=== PATIENT | male | born 1940 | race Caucasian/White ===

== ENCOUNTER → 2017-02-25 | Outpatient (CLI) | payer OTHER ==
[~2017-02-25] MED LIST: ALBU8.5H3 INH; ATOR20TA9 PO; DABI150C PO; FURO40TA6 PO; LISI-170 PO; METF500T4 PO; METO-95 PO; POTA10TA31 PO; TERA5CAP3 PO; TIOT18CA INH
[2017-02-25 13:31] LABS: BLOOD UREA NITROGEN 19 mg/dL (7-18)
[2017-02-25 13:34] LABS: ASPARTATE AMINO TRANSFERASE 12 U/L (15-37)
== END | disposition home or self-care (01) ==
LOC: STAR 12:16
PROVIDERS: ATTEND Internal Medicine Gastroenterology
DX: Z01.818 Encounter for other preprocedural examination (principal); B96.89 Other specified bacterial agents as the cause of diseases classified elsewhere
CPT/HCPCS: 36415; 80053; 93005

== ENCOUNTER 2017-03-01 11:02 | Day surgery (SDC) | payer OTHER ==
[~2017-03-01] VITALS: Ht 177.8 cm; Wt 88.0 kg
[2017-03-01 09:53] LABS: FECAL DELIVERY METHOD COLONOSCOPY
[~2017-03-01 11:02] MED LIST changes: +FENTANYL PF 250 MCG/5ML ONE; +MIDAZOLAM 1 MG/ML, 2ML ONE
[2017-03-01 11:36] VITALS: BP 142/70
[2017-03-01] MEDS ORDERED: LACTATED RINGERS 1,000 ML IV SCH (11:40)
[2017-03-01] MEDS ORDERED: LIDOCAINE 1%, 2ML SQ PRN (12:00)
[2017-03-01] MEDS ORDERED: FENTANYL PF 250 MCG/5ML ONE (12:48)
[2017-03-01] MEDS ORDERED: MIDAZOLAM 1 MG/ML, 2ML ONE (12:48)
[2017-03-01] MEDS ORDERED: PROPOFOL 10 MG/ML, 20ML ONE (15:29)
== END 2017-03-01 14:50 | disposition home or self-care (01) ==
LOC: OUT 11:02
PROVIDERS: ATTEND Internal Medicine Gastroenterology
DX: A04.7 Enterocolitis due to Clostridium difficile (principal); J45.909 Unspecified asthma, uncomplicated; I10 Essential (primary) hypertension; E11.9 Type 2 diabetes mellitus without complications; G47.33 Obstructive sleep apnea (adult) (pediatric); I48.0 Paroxysmal atrial fibrillation; E78.00 Pure hypercholesterolemia, unspecified; J44.9 Chronic obstructive pulmonary disease, unspecified; Z96.653 Presence of artificial knee joint, bilateral; Z72.89 Other problems related to lifestyle; Z87.891 Personal history of nicotine dependence
CPT/HCPCS: 44705; 45380; 82962; 88305; J2250; J2704; J3010; J7120

== ENCOUNTER → 2018-06-01 | Outpatient (CLI) | payer MEDICARE, OTHER ==
[~2018-06-01] MED LIST changes: -ALBU8.5H3 INH; +ALBU8.5H8 INH; -FENTANYL PF 250 MCG/5ML ONE; -METF500T4 PO; +METF500T5 PO; -MIDAZOLAM 1 MG/ML, 2ML ONE
== END | disposition home or self-care (01) ==
LOC: CFH 09:19
PROVIDERS: ATTEND Family Medicine
DX: N28.1 Cyst of kidney, acquired (principal); N40.0 Benign prostatic hyperplasia without lower urinary tract symptoms; R31.0 Gross hematuria; R41.3 Other amnesia
CPT/HCPCS: 70450; 76770

== ENCOUNTER 2019-05-08 09:00 | Observation (INO) | payer MEDICARE ==
[~2019-05-08] VITALS: Ht 175.3 cm; Wt 78.0 kg
[~2019-05-08 09:00] MED LIST changes: +ATOR20TA37 PO; -ATOR20TA9 PO; +METF500T17 PO; -METF500T5 PO
[2019-05-08] MEDS ORDERED: FLUT9.9S NAS (09:40)
[2019-05-08] MEDS ORDERED: CEFAZOLIN PMX 1GM/50ML 50 ML IVPB ONE (10:00)
[2019-05-08] MEDS ORDERED: MIDAZOLAM 1 MG/ML, 5ML ONE (11:45)
[2019-05-08] MEDS ORDERED: CEFAZOLIN 1,000 MG ONE (11:45)
[2019-05-08] MEDS ORDERED: FENTANYL PF 100 MCG/2ML ONE (11:45)
[2019-05-08] MEDS ORDERED: LIDOCAINE 2%, 20ML ONE (11:45)
[2019-05-08] MEDS ORDERED: CEFAZOLIN PMX 1GM/50ML 50 ML ONE (11:45)
[2019-05-08] MEDS ORDERED: HOLD MEDICATION MC PRN (13:00)
[2019-05-08] MEDS ORDERED: HYDROcodone/APAP 5/325 TABLET PO PRN (13:00)
[2019-05-08] MEDS ORDERED: ZOLPIDEM 5MG TABLET PO PRN (13:00)
[2019-05-08] MEDS: SODIUM CHLORIDE 0.9% 1,000 ML IV SCH ×2 (13:26→18:00)
[2019-05-08] MEDS: PLEASE ENTER HEIGHT AND WEIGHT MC SCH ×2 (13:27→18:01)
[2019-05-08] MEDS: METOPROLOL SUCCINATE 100 MG TAB.ER.24H PO SCH (14:53)
[2019-05-08] MEDS: LISINOPRIL 20 MG TABLET PO SCH ×2 (14:53→20:34)
[2019-05-08 16:21] VITALS: BP 158/89
[2019-05-08 19:42] VITALS: BP 153/81
[2019-05-08] MEDS ORDERED: SENNA/DOCUSATE TABLET PO PRN (20:30)
[2019-05-08] MEDS: CEFAZOLIN PMX 1GM/50ML 50 ML IVPB SCH (20:34)
[2019-05-08] MEDS: FUROSEMIDE 40 MG TABLET PO SCH (20:34)
[2019-05-08] MEDS: TERAZOSIN 5MG CAPSULE PO SCH (20:34)
[2019-05-08] MEDS: SODIUM CHLORIDE FLUSH 10ML SYR IVF SCH (20:35)
[2019-05-08] MEDS ORDERED: LISINOPRIL 20 MG TABLET PO SCH (21:00)
[2019-05-08] MEDS ORDERED: ATORVASTATIN 20 MG TABLET PO SCH (21:00)
[2019-05-09 01:20] VITALS: BP 150/79
[2019-05-09] MEDS: CEFAZOLIN PMX 1GM/50ML 50 ML IVPB SCH (04:48)
[2019-05-09 07:37] VITALS: BP 160/76
[2019-05-09] MEDS ORDERED: FLUTICASONE NASAL SPRAY 16GM NAS SCH (09:00)
[2019-05-09] MEDS ORDERED: POTASSIUM CHLORIDE 10 MEQ TABLET.ER PO SCH (09:00)
[2019-05-09] MEDS ORDERED: METOPROLOL SUCCINATE 100 MG TAB.ER.24H PO SCH (09:00)
[2019-05-09] MEDS ORDERED: metFORMIN 500 MG TABLET PO SCH (09:00)
[2019-05-09] MEDS: SODIUM CHLORIDE FLUSH 10ML SYR IVF SCH (09:24)
[2019-05-09] MEDS: TERAZOSIN 5MG CAPSULE PO SCH (09:24)
[2019-05-09] MEDS: LISINOPRIL 20 MG TABLET PO SCH (09:25)
[2019-05-09] MEDS: FUROSEMIDE 40 MG TABLET PO SCH (09:25)
[2019-05-09] MEDS: METOPROLOL SUCCINATE 100 MG TAB.ER.24H PO SCH (09:25)
== END 2019-05-09 11:40 | disposition home or self-care (01) ==
LOC: CACL 09:00 → ORIP 13:00 → 5SO 13:16 → DCLOUNGE 05-09 11:32
PROVIDERS: ADMIT Internal Medicine Cardiovascular Disease; ATTEND Internal Medicine Cardiovascular Disease
DX: I48.2 Chronic atrial fibrillation (principal); R00.1 Bradycardia, unspecified; R06.02 Shortness of breath; R53.83 Other fatigue; I10 Essential (primary) hypertension; E78.5 Hyperlipidemia, unspecified; E11.9 Type 2 diabetes mellitus without complications; Z87.891 Personal history of nicotine dependence; Z79.84 Long term (current) use of oral hypoglycemic drugs; Z79.899 Other long term (current) drug therapy
CPT/HCPCS: 33207; 71045; 93005; 96365; 96366; 99156; 99157; C1779; C1786; C1892; G0378; J0690; J2250; J3010; J3490

== ENCOUNTER 2019-06-06 08:33 | Outpatient (CLI) | payer MEDICARE, OTHER ==
[~2019-06-06 08:33] MED LIST changes: +FLUT9.9S NAS; +REGADENOSON 0.4 MG/5 ML SYRINGE ONE
== END 2019-06-06 23:59 | disposition home or self-care (01) ==
LOC: CFH 08:33
PROVIDERS: ATTEND Internal Medicine Cardiovascular Disease
DX: I10 Essential (primary) hypertension (principal); I48.2 Chronic atrial fibrillation
CPT/HCPCS: 78452; A9502; J2785